=== PATIENT | female | born 1960 | race Caucasian/White ===

== ENCOUNTER 2019-01-05 06:11 | Inpatient (IN) ==
[2018-12-30 15:14] LABS: Amphetamine Screen,Urine NONE DETECTED (NONDETECTED); Benzodiazepines Screen,Urine NONE DETECTED (NONDETECTED); Cocaine Screen,Urine NONE DETECTED (NONDETECTED); Opiate Screen,Urine NONE DETECTED (NONDETECTED); Oxycodone, Urine Screen NONE DETECTED (NONDETECTED)
[2018-12-30 15:16] LABS: Appearance,Urine CLEAR; Bilirubin,Urine NEG (NEG); Color,Urine YELLOW; Glucose,Urine (UA) NEGATIVE (NEG); Leukocyte Esterase,Urine NEG /uL (NEG); Protein,Urine NEG (NEG); Specific Gravity,Urine 1.011 (1.000-1.035); Urine Blood NEG mg/dL (<0.03); Urobilinogen,Urine NEG (NEG)
[2018-12-30 15:57] LABS: Basophils # (Auto) 0 K/mcL (0.0-0.3); Basophils % (Auto) 0.6 % (0.0-2.0); Eosinophils # (Auto) 0.2 K/mcL (0.0-0.7); Eosinophils % (Auto) 2.8 % (0.0-7.0); Granulocytes % (Auto) 62.7 % (38.0-78.0); Lymphocytes % (Auto) 26.3 % (15.5-49.0); Mean Cell Volume 88.3 fL (80.0-100.0); Mean Corpuscular HGB Conc 32.3 g/dL (31.0-36.0); Monocytes # (Auto) 0.6 K/mcL (0.1-0.9); Monocytes % (Auto) 7.6 % (1.0-12.0); Platelet Count 252 K/mcL (140-440); RBC 4.74 M/mcL (4.00-5.20); Red Cell Distribution Width 17.6 % (11.5-14.5)
[2018-12-30 16:00] LABS: Blood Urea Nitrogen 9 mg/dl (6-20)
[2018-12-30 17:14] LABS: Estimated Average Glucose(eAG) 123 mg/dL; Hemoglobin A1C 5.9 % HGB (4.0-6.0)
[2019-01-05] MEDS ORDERED: ceFAZolin 1 GM VIAL IV SCH (07:00)
[2019-01-05] MEDS ORDERED: 0.9 % SODIUM CHLORIDE 9 ML, KETOROLAC 30 MG, ROPIVACAINE HCL/PF 49.5 ML, EPINEPHrine 0.... IJ SCH (07:00)
[2019-01-05 07:45] LABS: Amphetamine Screen,Urine NONE DETECTED (NONDETECTED); Benzodiazepines Screen,Urine NONE DETECTED (NONDETECTED); Cocaine Screen,Urine NONE DETECTED (NONDETECTED); Opiate Screen,Urine NONE DETECTED (NONDETECTED); Oxycodone, Urine Screen NONE DETECTED (NONDETECTED)
[2019-01-05] MEDS ORDERED: KETAMINE 100 MG/ML ML IV ONE (10:30)
[2019-01-05] MEDS ORDERED: DEXAMETHASONE 10 MG/ML VIAL IV ONE (10:30)
[2019-01-05] MEDS ORDERED: PROPOFOL 200 MG/20 ML VIAL IV ONE (10:30)
[2019-01-05] MEDS ORDERED: EPINEPHrine 1 MG/ML AMPUL IV ONE (10:30)
[2019-01-05] MEDS ORDERED: MIDAZOLAM 5 MG/5 ML VIAL IV ONE (10:30)
[2019-01-05] MEDS ORDERED: LIDOCAINE HCL/PF 100 MG/5 ML SYRINGE IV ONE (10:30)
[2019-01-05] MEDS ORDERED: TRANEXAMIC ACID 1,000 MG/10 ML VIAL IV ONE ×2 (10:30→12:20)
[2019-01-05] MEDS ORDERED: ROPIVACAINE HCL/PF 20 ML VIAL IJ ONE (10:30)
[2019-01-05] MEDS ORDERED: GLYCOPYRROLATE 0.2 MG/ML VIAL IV ONE (10:30)
[2019-01-05] MEDS ORDERED: ONDANSETRON 4 MG/2 ML VIAL IV ONE (10:30)
[2019-01-05] MEDS ORDERED: PHENYLEPHRINE 10 MG/ML VIAL IV ONE (10:30)
[2019-01-05] MEDS ORDERED: GENTAMICIN SULFATE 800 MG/20 ML VIAL IR ONE (10:55)
[2019-01-05] MEDS ORDERED: FLEETS ADULT ENEMA PR PRN (12:20)
[2019-01-05] MEDS ORDERED: BISACODYL 10 MG SUPP.RECT PR PRN (12:20)
[2019-01-05] MEDS ORDERED: MAGNESIUM HYDROXIDE 30 ML ORAL.SUSP PO PRN (12:20)
[2019-01-05] MEDS ORDERED: POLYETHYLENE GLYCOL 3350 17 GM PACKET PO PRN (12:20)
[2019-01-05] MEDS ORDERED: ONDANSETRON 4 MG/2 ML VIAL IV PRN ×2 (12:20→13:31)
[2019-01-05] MEDS ORDERED: BENZOCAINE/MENTHOL 1 LOZENGE PO PRN ×2 (12:20→13:31)
[2019-01-05] MEDS ORDERED: CARBOXYMETHYLCELLULOSE SODIUM OU PRN (12:24)
[2019-01-05] MEDS ORDERED: traZODone HCL 50 MG TABLET PO PRN (12:24)
[2019-01-05] MEDS ORDERED: METHOCARBAMOL 500 MG TABLET PO PRN (12:24)
[2019-01-05] MEDS ORDERED: IBUPROFEN 200 MG TABLET PO PRN (12:24)
[2019-01-05] MEDS ORDERED: ALBUTEROL SULFATE 1 PUFF INHALER IH PRN (12:24)
--- NOTE | 2019-01-05 12:29 | Brief Operative Note ---
Date of procedure: 01/05/19 Pre-op diagnosis: djd right knee Post-op diagnosis: same Procedure: R TKR Grafts/Implants: Yes (Triathlon knee. size 3 femur, 3 tibia, 9 mm insert, 35 mm anatomic patella) Anesthesia: GETA Findings: DJD right knee Complications: none Surgeon: Jovon Durbin Inventory Representative: Gaurav Hand Estimated blood loss (cc): 100 Tourniquet Time (Minutes): 66 Specimens Removed/Pathology: none sent Condition: stable Disposition: PACU
--- NOTE | 2019-01-05 13:06 | Operative Note ---
DATE OF OPERATION: 01/05/2019 PREOPERATIVE DIAGNOSIS: Degenerative joint disease of the right knee. POSTOPERATIVE DIAGNOSIS: Degenerative joint disease of the right knee. OPERATION: Right total knee replacement using RONNA and a triathlon knee. SURGEON: Jovon Durbin MD SLEEVER: Gaurav Hand PA-C ANESTHESIA: Done by Moi Boyle CRNA. ESTIMATED BLOOD LOSS: 100 mL TOURNIQUET TIME: 66 minutes. SUMMARY OF PROCEDURE: General anesthesia was attained. Stab incision was made in the femur and the tibia. The pins were placed unicortically in both of those bones. The array was then placed for the RONNA. A midline incision was made from the quadriceps to the tibial tubercle. This was taken down sharply to the quadriceps and medial retinaculum. The quadriceps and medial retinaculum was split longitudinally. The medial soft tissue was elevated with care being taken to protect the medial collateral ligament. The patella was mobilized laterally. The fat pad was debrided. The menisci were resected. The checkpoints were placed, one in the femur and one in the tibia. Landmarks were confirmed on the femur and then on the tibia. Balancing was then done and rotation of the femur adjusted to get a balanced flexion and extension gap. The robotic arm was then used to make the proximal tibial cut. The robotic arm was then used to make all the femur cuts, those are posterior, anterior, bevel cuts and distal. Trials were then done after prepping the tibia. The best combination of stability through range of motion was with the 3 tibia, 3 femur and 9 mm insert. The patella was everted. A measured resection was done of the patella from 23 mm down to 13 mm. The patella sized to a 32. The 3 holes were drilled for the prongs of the patella. Multimodal injection was then done throughout the knee. The bone surfaces were thoroughly irrigated and then dried. The components were then cemented in. This was done in full extension. Excess cement was removed meticulously. The tourniquet was let down. All bleeding points were coagulated. The quadriceps and medial retinacular split were closed with buried sutures of 0 FiberWire. The second layer was done of a running locking 0 Maxon. Subcutaneous tissue was closed with interrupted buried 2-0 Monocryl. The skin was closed with a Dura-Nixon. A sterile compressive dressing was applied. The sponge and needle count was correct. The patient tolerated the procedure well and was moved to the recovery room in stable condition. TJF:kh Job ID: [id number] Doc ID: [id number] Jovon Durbin MD
[2019-01-05] MEDS ORDERED: FLUMAZENIL 0.1 MG/ML ML IV PRN (13:31)
[2019-01-05] MEDS ORDERED: LACTATED RINGERS 250 ML IV PRN (13:31)
[2019-01-05] MEDS ORDERED: IPRATROPIUM/ALBUTEROL 3 ML AMPUL.NEB NEB PRN (13:31)
[2019-01-05] MEDS ORDERED: NALOXONE HCL 0.4 MG/ML VIAL IV PRN (13:31)
[2019-01-05] MEDS ORDERED: KETOROLAC 30 MG/ML VIAL IV PRN (13:31)
[2019-01-05] MEDS ORDERED: fentaNYL 100 MCG/2 ML VIAL IV PRN (13:31)
[2019-01-05] MEDS ORDERED: METHOCARBAMOL 1,000 MG/10 ML VIAL IV PRN (13:31)
[2019-01-05] MEDS ORDERED: MEPERIDINE 25 MG/ML SYRINGE IV PRN (13:31)
[2019-01-05] MEDS ORDERED: ACETAMINOPHEN 1,000 MG/100 ML BOTTLE IV ONE (13:31)
[2019-01-05] MEDS ORDERED: LACTATED RINGERS 1,000 ML IV SCH (13:45)
[2019-01-05] MEDS: 0.9 % SODIUM CHLORIDE 1,000 ML IV SCH (14:40)
[2019-01-05] MEDS: GABAPENTIN 400 MG CAPSULE PO SCH ×2 (14:41→23:28)
[2019-01-05] MEDS: 0.9 % SODIUM CHLORIDE 10 ML SYRINGE IV SCH ×2 (14:41→23:38)
--- NOTE | 2019-01-05 14:43 | XRay Report ---
CLINICAL INFORMATION: Postsurgical follow-up TECHNIQUE: AP and crosstable lateral right knee COMPARISON: Previous evaluation dated 04/01/2018 FINDINGS: Status post right total knee arthroplasty. Femoral and tibial components are in anatomic positions. There is postsurgical soft tissue and intra-articular gas. There are skin isabel anteriorly IMPRESSION: Status post right total knee arthroplasty Interpreted and Authenticated by: Eddie Gibbs 01/05/19
[2019-01-05] MEDS: ceFAZolin 1 GM VIAL IV SCH (16:31)
[2019-01-05] MEDS: HYDROcodone/APAP 10/325MG TABLET PO PRN ×2 (16:32→20:59)
[2019-01-05] MEDS ORDERED: FORMOTEROL INH SCH (21:00)
[2019-01-05] MEDS ORDERED: BUDESONIDE INH SCH (21:00)
[2019-01-05] MEDS ORDERED: LEVOTHYROXINE SODIUM 112 MCG TABLET PO SCH (21:00)
[2019-01-05] MEDS ORDERED: THIAMINE 100 MG TABLET PO SCH (21:00)
[2019-01-05] MEDS ORDERED: OMEPRAZOLE 20 MG CAPSULE PO SCH (21:00)
[2019-01-05] MEDS ORDERED: metFORMIN 850 MG TABLET PO SCH (21:00)
[2019-01-05] MEDS ORDERED: DULoxetine 30 MG CAPSULE PO SCH (21:00)
[2019-01-05] MEDS ORDERED: lamoTRIgine 100 MG TABLET PO SCH (21:00)
[2019-01-05] MEDS ORDERED: FOLIC ACID 1 MG TABLET PO SCH (21:00)
[2019-01-05] MEDS ORDERED: SIMVASTATIN 20 MG TABLET PO SCH (21:00)
[2019-01-05] MEDS ORDERED: CETIRIZINE 10 MG TABLET PO SCH (21:00)
[2019-01-05] MEDS ORDERED: SENNOSIDES 1 TABLET PO SCH (21:00)
[2019-01-05] MEDS ORDERED: LISINOPRIL 10 MG TABLET PO SCH (21:00)
[2019-01-05] MEDS: ASPIRIN 81 MG TAB.CHEW PO SCH (23:11)
[2019-01-05] MEDS: OXYBUTYNIN CHLORIDE 5 MG TABLET PO SCH (23:29)
[2019-01-05] MEDS: oxyCODONE 10 MG TAB.ER.12H PO SCH (23:29)
[2019-01-05] MEDS: DOCUSATE SODIUM 100 MG CAPSULE PO SCH (23:34)
[2019-01-06] MEDS: HYDROcodone/APAP 10/325MG TABLET PO PRN ×3 (00:47→09:38)
[2019-01-06] MEDS: ceFAZolin 1 GM VIAL IV SCH (01:22)
[2019-01-06] MEDS: 0.9 % SODIUM CHLORIDE 1,000 ML IV SCH (01:54)
[2019-01-06] MEDS: 0.9 % SODIUM CHLORIDE 10 ML SYRINGE IV SCH (04:59)
[2019-01-06 07:00] LABS: Basophils # (Auto) 0 K/mcL (0.0-0.3); Basophils % (Auto) 0 % (0.0-2.0); Eosinophils # (Auto) 0 K/mcL (0.0-0.7); Eosinophils % (Auto) 0.1 % (0.0-7.0); Granulocytes % (Auto) 85.8 % (38.0-78.0); Lymphocytes # (Auto) 1.1 K/mcL (1.5-4.8); Lymphocytes % (Auto) 7.7 % (15.5-49.0); Mean Cell Volume 88.9 fL (80.0-100.0); Mean Corpuscular HGB Conc 32.7 g/dL (31.0-36.0); Monocytes # (Auto) 0.9 K/mcL (0.1-0.9); Monocytes % (Auto) 6.4 % (1.0-12.0); Platelet Count 214 K/mcL (140-440); RBC 3.95 M/mcL (4.00-5.20)
--- NOTE | 2019-01-06 08:09 | Discharge Summary ---
Ortho Discharge - TKA - Patient Instructions Diet: Regular Diet Activity: activity as tolerated Total Knee Protocol: For Total Knee: Start ROM SHERYL with stationary bike or rocking chair. Work on gaining full extension of knee. Posterior dislocation precautions provided. Hip abductor strengthening and gait training instructions provided. Apply Cryocuff as instructed. Dressing Care: May shower in 2 days Patient Education: Hydrocodone/Acetaminophen (By mouth), Aspirin (By mouth), Total Knee Replacement (DC) Additional Instructions: Discharge Instructions: Do the exercises at home that physical therapy gave you throughout the day. Weight bearing as tolerated. Wear comfortable clothing for physical therapy. You are scheduled to start physical therapy at [facility] ([phone]) on at 12:45 pm, please arrive 15 minutes early for paperwork. Take your prescription, photo ID, insurance cards, and current medication list with you to your first physical therapy appointment. Take your prescription to [facility] picker any medication. You have the Aquacel Ag dressing, leave in place for 7 days then remove. If dressing becomes soiled (turns black), remove and use gauze 4x4 dressing and silvasorb ointment and change daily. Keep incision clean and dry. You may start showering on post op day #2. To avoid constipation while taking any narcotic pain medication, take an over the counter stool softener/laxative. Use your Cryocuff or ice packs as directed, on for 20 minutes at a time throughout the day. This and elevation will help with pain and swelling. Call your physician for fevers above 100.5 or pain not controlled by medication. Your prescriptions are with your discharge information. Some medications were electronically transmitted to your pharmacy of choice. Take Aspirin twice daily, for 30 days, as prescribed to prevent blood clots (see medication list). - Follow Up Plan Follow Up Appointments: Gaurav Hand PA-C [Physician Internet Marketing Specialist] - 01/18/19 3:40 pm Disposition: Home, Self-Care Prognosis: Good Rehab Potential: Good I certify that the patient requires SNF services: No Overall status at discharge: patient is not back to baseline - Orders For Discharge Prescriptions: Aspirin [Ecotrin] 81 mg PO DAILY #60 tab.ec RX: Aspirin 81 mg PO BID #60 tab.chew RX: HYDROcodone/APAP 10/325MG [[place] 10-325Mg] 1 - 2 tab PO Q4HP PRN #60 tab PRN Reason: Pain Level 3-6 Additional Discharge Orders: Physical Therapy at Discharge - TKA Location: None Selected Toilet Riser Discharge Order Location: None Selected Walker Location: None Selected
[2019-01-06] MEDS ORDERED: ESTRADIOL 1 MG TABLET PO SCH (09:00)
[2019-01-06] MEDS: OXYBUTYNIN CHLORIDE 5 MG TABLET PO SCH (09:39)
[2019-01-06] MEDS: oxyCODONE 10 MG TAB.ER.12H PO SCH (09:39)
[2019-01-06] MEDS: ASPIRIN 81 MG TAB.CHEW PO SCH (09:40)
[2019-01-06] MEDS: DOCUSATE SODIUM 100 MG CAPSULE PO SCH (09:40)
[2019-01-06] MEDS: GABAPENTIN 400 MG CAPSULE PO SCH (09:40)
[2019-01-19] MEDS ORDERED: ERGOCALCIFEROL (VITAMIN D2) 50,000 UNIT CAPSULE PO SCH (09:00)
== END 2019-01-06 09:57 | disposition home or self-care (01) | DRG 554 ==
LOC: MEDSUR 06:11
PROVIDERS: ADMIT Orthopaedic Surgery Foot and Ankle Surgery; ATTEND Orthopaedic Surgery Foot and Ankle Surgery

== ENCOUNTER 2019-05-18 06:30 | Inpatient (IN) ==
[2019-05-10 14:17] LABS: Basophils # (Auto) 0 K/mcL (0.0-0.3); Basophils % (Auto) 0.6 % (0.0-2.0); Eosinophils # (Auto) 0.3 K/mcL (0.0-0.7); Eosinophils % (Auto) 4.1 % (0.0-7.0); Granulocytes % (Auto) 65.7 % (38.0-78.0); Hematocrit 37.6 % (36.0-48.0); Hemoglobin 12.1 g/dL (12.0-15.0); Lymphocytes # (Auto) 1.6 K/mcL (1.5-4.8); Lymphocytes % (Auto) 22.4 % (15.5-49.0); Mean Cell Volume 82.7 fL (80.0-100.0); Mean Platelet Volume 9.1 fL (7.4-10.4); Monocytes # (Auto) 0.5 K/mcL (0.1-0.9); Monocytes % (Auto) 7.2 % (1.0-12.0); Platelet Count 269 K/mcL (140-440); RBC 4.55 M/mcL (4.00-5.20); Red Cell Distribution Width 19.1 % (11.5-14.5); WBC 7.4 K/mcL (4.5-11.0)
[2019-05-10 14:18] LABS: Estimated Average Glucose(eAG) 128 mg/dL; Hemoglobin A1C 6.1 % HGB (4.0-6.0)
[2019-05-10 14:23] LABS: Blood Urea Nitrogen 12 mg/dl (6-20); Calcium 8.8 mg/dl (8.6-10.4); Carbon Dioxide 30 mmol/L (22-30); Chloride 97 mmol/L (96-108); Glomerular Filtration Rate 82; Glucose 88 mg/dL (70-105); Potassium 3.9 mmol/L (3.3-5.1); Sodium 140 mmol/L (133-145)
[2019-05-10 14:26] LABS: Appearance,Urine CLEAR; Bilirubin,Urine NEG (NEG); Color,Urine YELLOW; Culture Indicated,Urine NO; Glucose,Urine (UA) NEGATIVE (NEG); Ketones,Urine NEG (NEG); Leukocyte Esterase,Urine NEG /uL (NEG); Nitrate,Urine NEG (NEG); Protein,Urine NEG (NEG); Specific Gravity,Urine 1.019 (1.000-1.035); Urine Blood NEG mg/dL (<0.03); Urobilinogen,Urine NEG (NEG)
[~2019-05-18 06:30] MED LIST: 0.9 % SODIUM CHLORIDE 9 ML, KETOROLAC 30 MG, ROPIVACAINE HCL/PF 49.5 ML, EPINEPHrine 0.... IJ SCH; ceFAZolin 3 GM in DEXTROSE 5% IN WATER 50 ML IV SCH
[2019-05-18] MEDS ORDERED: IPRATROPIUM/ALBUTEROL 3 ML AMPUL.NEB NEB PRN ×2 (07:00→10:47)
[2019-05-18] MEDS ORDERED: SCOPOLAMINE 1 PATCH PATCH TOPICAL PRN (07:00)
[2019-05-18 07:42] LABS: Amphetamine Screen,Urine NONE DETECTED (NONDETECTED); Barbiturate Screen,Urine NONE DETECTED (NONDETECTED); Benzodiazepines Screen,Urine NONE DETECTED (NONDETECTED); Cannabinoid Screen,Urine SUSPECT POSITIVE (NONDETECTED); Cocaine Screen,Urine NONE DETECTED (NONDETECTED); Opiate Screen,Urine NONE DETECTED (NONDETECTED); Oxycodone, Urine Screen NONE DETECTED (NONDETECTED); Phencyclidine Screen,Urine NONE DETECTED (NONDETECTED)
[2019-05-18] MEDS ORDERED: TRANEXAMIC ACID 1,000 MG/10 ML VIAL IV ONE ×2 (09:50→11:37)
[2019-05-18] MEDS ORDERED: PROPOFOL 200 MG/20 ML VIAL IV ONE (09:50)
[2019-05-18] MEDS ORDERED: DEXAMETHASONE 10 MG/ML VIAL IV ONE (09:50)
[2019-05-18] MEDS ORDERED: KETAMINE 100 MG/ML ML IV ONE (09:50)
[2019-05-18] MEDS ORDERED: ONDANSETRON 4 MG/2 ML VIAL IV ONE (09:50)
[2019-05-18] MEDS ORDERED: ROPIVACAINE HCL/PF 20 ML VIAL IJ ONE (09:50)
[2019-05-18] MEDS ORDERED: ePHEDrine 50 MG/ML AMPUL IV ONE (09:50)
[2019-05-18] MEDS ORDERED: PHENYLEPHRINE 10 MG/ML VIAL IV ONE (09:50)
[2019-05-18] MEDS ORDERED: GLYCOPYRROLATE 0.2 MG/ML VIAL IV ONE (09:50)
[2019-05-18] MEDS ORDERED: MIDAZOLAM 5 MG/5 ML VIAL IV ONE (09:50)
[2019-05-18] MEDS ORDERED: LIDOCAINE HCL/PF 100 MG/5 ML SYRINGE IV ONE (09:50)
[2019-05-18] MEDS ORDERED: GENTAMICIN SULFATE 800 MG/20 ML VIAL IR ONE (10:16)
[2019-05-18] MEDS ORDERED: HYDROmorphone 2 MG/ML VIAL IV PRN ×2 (10:47→15:01)
[2019-05-18] MEDS ORDERED: FLUMAZENIL 0.1 MG/ML ML IV PRN (10:47)
[2019-05-18] MEDS ORDERED: METHOCARBAMOL 1,000 MG/10 ML VIAL IV PRN ×2 (10:47→11:37)
[2019-05-18] MEDS ORDERED: ACETAMINOPHEN 1,000 MG/100 ML BOTTLE IV ONE (10:47)
[2019-05-18] MEDS ORDERED: MEPERIDINE 25 MG/ML SYRINGE IV PRN (10:47)
[2019-05-18] MEDS ORDERED: MEPERIDINE 50 MG/ML INJECTION IM PRN (10:47)
[2019-05-18] MEDS ORDERED: ePHEDrine 50 MG/ML AMPUL IV PRN (10:47)
[2019-05-18] MEDS ORDERED: ONDANSETRON 4 MG/2 ML VIAL IV PRN ×2 (10:47→11:37)
[2019-05-18] MEDS ORDERED: NALOXONE HCL 0.4 MG/ML VIAL IV PRN (10:47)
[2019-05-18] MEDS ORDERED: PROMETHAZINE 25 MG/ML VIAL IV PRN (10:47)
[2019-05-18] MEDS ORDERED: diphenhydrAMINE 50 MG/ML VIAL IV PRN (10:47)
[2019-05-18] MEDS ORDERED: METOPROLOL TARTRATE 5 MG/5 ML VIAL IV PRN (10:47)
[2019-05-18] MEDS ORDERED: KETOROLAC 30 MG/ML VIAL IV PRN (10:47)
[2019-05-18] MEDS ORDERED: ATROPINE SULFATE 0.4 MG/ML VIAL IV PRN (10:47)
[2019-05-18] MEDS ORDERED: fentaNYL 100 MCG/2 ML VIAL IV PRN (10:47)
[2019-05-18] MEDS ORDERED: PROMETHAZINE 25 MG/ML VIAL IM PRN (10:47)
[2019-05-18] MEDS ORDERED: POLYETHYLENE GLYCOL 3350 17 GM PACKET PO PRN (11:37)
[2019-05-18] MEDS ORDERED: MAGNESIUM HYDROXIDE 30 ML ORAL.SUSP PO PRN (11:37)
[2019-05-18] MEDS ORDERED: BENZOCAINE/MENTHOL 1 LOZENGE PO PRN (11:37)
[2019-05-18] MEDS ORDERED: FLEETS ADULT ENEMA PR PRN (11:37)
[2019-05-18] MEDS ORDERED: BISACODYL 10 MG SUPP.RECT PR PRN (11:37)
--- NOTE | 2019-05-18 11:37 | Brief Operative Note ---
Date of procedure: 05/18/19 Pre-op diagnosis: DJD left knee Post-op diagnosis: same Procedure: RONNA TKR Grafts/Implants: Yes (Triathlon knee) Anesthesia: GETA Complications: none Surgeon: Jovon Durbin Diesel Machinist: Jovon Durbin Estimated blood loss (cc): 90 Specimens Removed/Pathology: none sent Condition: stable Disposition: PACU
[2019-05-18] MEDS ORDERED: ALBUTEROL SULFATE 1 PUFF INHALER IH PRN (11:40)
[2019-05-18] MEDS ORDERED: CARBOXYMETHYLCELLULOSE SODIUM OU PRN (11:40)
[2019-05-18] MEDS ORDERED: traZODone HCL 50 MG TABLET PO PRN (11:40)
[2019-05-18] MEDS ORDERED: KETOTIFEN FUMARATE OP PRN (11:43)
[2019-05-18] MEDS ORDERED: IBUPROFEN 200 MG TABLET PO PRN (11:43)
--- NOTE | 2019-05-18 12:37 | Operative Note ---
DATE OF OPERATION: 05/18/2019 PREOPERATIVE DIAGNOSIS: Degenerative joint disease of the left knee. POSTOPERATIVE DIAGNOSIS: Degenerative joint disease of the left knee. OPERATION: Left total knee replacement using the Gerardo system. SURGEON: Jovon Durbin M.D. ANESTHESIA: General done by Quita Nair CRNA. ESTIMATED BLOOD LOSS: 100 mL. TOURNIQUET TIME: 65 minutes. SUMMARY OF PROCEDURE: General anesthesia was attained. The left leg was prepped and draped. The stab incisions were made in the femur and the tibia. We used blunt dissection to get down to bone. The pins for the arrays were placed. The arrays were then placed onto these pins. A midline incision was made from the quadriceps to the tibial tubercle. It was taken down sharply to the quadriceps and medial retinaculum. A midvastus approach was used. The quadriceps was split for 2 cm and then the VMO for about 2 cm as well at an oblique angle. The medial retinaculum was split. The medial soft tissue was elevated. The fat pad was debrided. The anterior menisci were resected. The ACL was released. The soft tissue was elevated off of the anterior aspect of the femur and a partial synovectomy was done. The hip center was located by counterclockwise rotation of the leg. A checkpoint was placed into the femur and a checkpoint was placed into the tibia. The position of these were confirmed under the mini C-arm. Forty points were located during the registration of the femur and likewise forty anatomic points located on the tibia. The medial and lateral meniscus had been located using the Gerardo system. We then balanced the knee giving 1 more degree of laxity in flexion than extension. We internally rotated the cut on the femur into 1 degree of varus to balance the compartments. I then used the robotic arm and the robotic guidance to make all the tibial and femoral cuts. A trial was then placed onto the tibia and the tibial component externally rotated. The components sized to a 3. The rotation was confirmed to be as planned on the Gerardo. The tower was then placed, and the canal was then drilled and then broached. The femur sized to a 3 as well. This trial was impacted and then held with a pin. The drill holes were made into the posterior aspect of the femur. We maximized lateral placement of the femur. We then trialed and got an excellent combination of stability and range of motion with a 9 mm insert. The patella was everted. Its thickness was 22 mm. We did an 8 mm resection leaving 14 mm. We used a 29 symmetric patella. The lateral facet was removed using a saw during the trialing aspect of the surgery. Posterior infiltrates were then placed of multimodal solution per protocol. The bone surfaces were thoroughly irrigated. The components were cemented in. The knee was left in extension as the components set up. The patella was also cemented in and this was held with a clamp. After the cement had hardened and excess cement had been removed, we let the tourniquet down. Bleeding was not excessive. All bleeding points were coagulated. The medial retinaculum and VMO and quads were closed with a double layer Stratafix proximally and distally. The subcutaneous tissue was closed with buried 2-0 Monocryl. The skin was closed with Dermabond. A sterile compressive dressing was applied. The sponge and needle count was correct. The patient tolerated the procedure well and was taken to the recovery room in stable condition. TJF:lei Job ID: [id number] Doc ID: [id number] Jovon Durbin MD
--- NOTE | 2019-05-18 12:42 | XRay Report ---
CLINICAL INFORMATION: Postsurgical follow-up TECHNIQUE: Portable AP, crosstable lateral, patellar views COMPARISON: None. FINDINGS: Status post left total knee arthroplasty. Femoral and tibial components are in anatomic positions. There is postsurgical soft tissue and intra-articular gas. IMPRESSION: Status post left knee replacement surgery Interpreted and Authenticated by: Eddie Gibbs 05/18/19
[2019-05-18] MEDS: 0.9 % SODIUM CHLORIDE 10 ML SYRINGE IV SCH ×2 (13:01→22:46)
[2019-05-18] MEDS: HYDROcodone/APAP 10/325MG TABLET PO PRN ×3 (13:01→23:42)
[2019-05-18] MEDS: 0.9 % SODIUM CHLORIDE 1,000 ML IV SCH (13:17)
[2019-05-18] MEDS: CALCIUM W/VIT D3 500 MG TABLET PO SCH ×2 (15:05→20:28)
[2019-05-18] MEDS: GABAPENTIN 400 MG CAPSULE PO SCH ×2 (15:05→20:25)
[2019-05-18] MEDS: ceFAZolin 1 GM VIAL IV SCH (17:34)
[2019-05-18] MEDS: ASPIRIN 81 MG TAB.CHEW PO SCH (20:25)
[2019-05-18] MEDS: OXYBUTYNIN CHLORIDE 5 MG TABLET PO SCH (20:26)
[2019-05-18] MEDS: DOCUSATE SODIUM 100 MG CAPSULE PO SCH (20:26)
[2019-05-18] MEDS: FORMOTEROL INH SCH (20:31)
[2019-05-18] MEDS: MOMETASONE INH SCH (20:31)
[2019-05-18] MEDS ORDERED: THIAMINE 100 MG TABLET PO SCH (21:00)
[2019-05-18] MEDS ORDERED: CETIRIZINE 10 MG TABLET PO SCH (21:00)
[2019-05-18] MEDS ORDERED: SIMVASTATIN 20 MG TABLET PO SCH (21:00)
[2019-05-18] MEDS ORDERED: lamoTRIgine 100 MG TABLET PO SCH (21:00)
[2019-05-18] MEDS ORDERED: LISINOPRIL 10 MG TABLET PO SCH (21:00)
[2019-05-18] MEDS ORDERED: DULoxetine 30 MG CAPSULE PO SCH (21:00)
[2019-05-18] MEDS ORDERED: LEVOTHYROXINE SODIUM 112 MCG TABLET PO SCH (21:00)
[2019-05-18] MEDS ORDERED: OMEPRAZOLE 20 MG CAPSULE PO SCH (21:00)
[2019-05-18] MEDS ORDERED: metFORMIN 850 MG TABLET PO SCH (21:00)
[2019-05-18] MEDS ORDERED: SENNOSIDES 1 TABLET PO SCH (21:00)
[2019-05-18] MEDS ORDERED: FOLIC ACID 1 MG TABLET PO SCH (21:00)
[2019-05-19] MEDS: ceFAZolin 1 GM VIAL IV SCH (01:36)
[2019-05-19] MEDS: 0.9 % SODIUM CHLORIDE 1,000 ML IV SCH (01:38)
[2019-05-19] MEDS: HYDROcodone/APAP 10/325MG TABLET PO PRN ×2 (04:05→07:57)
[2019-05-19] MEDS: 0.9 % SODIUM CHLORIDE 10 ML SYRINGE IV SCH (04:46)
[2019-05-19 05:34] LABS: Hematocrit 32.8 % (36.0-48.0); Hemoglobin 10.7 g/dL (12.0-15.0)
--- NOTE | 2019-05-19 07:05 | Discharge Summary ---
Ortho Discharge - TKA - Patient Instructions Diet: Renal/Consistent Carbs Activity: ambulate with assistive device Total Knee Protocol: For Total Knee: Start ROM SHERYL with stationary bike or rocking chair. Work on gaining full extension of knee. Posterior dislocation precautions provided. Hip abductor strengthening and gait training instructions provided. Apply Cryocuff as instructed. - Follow Up Plan Follow Up Appointments: Jovon Durbin MD [Physician] - 05/29/19 Disposition: Home, Self-Care Prognosis: Good Rehab Potential: Good I certify that the patient requires SNF services: No - Orders For Discharge Prescriptions: HYDROcodone/APAP 10/325MG [[place] 10-325Mg] 1 - 2 tab PO Q4HP PRN #60 tab PRN Reason: Pain Level 3-6 Walker [Ultra-Light Rollator] 1 each MC QDAY #1 each
--- NOTE | 2019-05-19 07:07 | Discharge Summary ---
Providers - Providers Patient information: Note initiated : 05/19/19 at 7:05 am Service Date, if different from initiated Date: [] Patient: Kenia Rondon a 58 y/o F admitted on 05/18/19 for Left Total Knee Arthroplasty Gerardo . Chief Complaint: [] Date of admission: 05/18/19 Discharge date: 05/19/19 Attending physician: Jovon Durbin Hospitalization Hospital course: total knee on left, 05/18. No co,plications. NV intact, no complications. Walking independently Discharge diagnosis: oateoarthritis left knee Exam - Exam Weight bearing status: full Range of motion: NV intact, 0-100 actively Ortho Discharge - TKA - Patient Instructions Diet: Renal/Consistent Carbs Activity: ambulate with assistive device Total Knee Protocol: For Total Knee: Start ROM SHERYL with stationary bike or rocking chair. Work on gaining full extension of knee. Posterior dislocation precautions provided. Hip abductor strengthening and gait training instructions provided. Apply Cryocuff as instructed. - Follow Up Plan Follow Up Appointments: Jovon Durbin MD [Physician] - 05/29/19 Disposition: Home, Self-Care Prognosis: Good Rehab Potential: Good I certify that the patient requires SNF services: No - Orders For Discharge Prescriptions: HYDROcodone/APAP 10/325MG [[place] 10-325Mg] 1 - 2 tab PO Q4HP PRN #60 tab PRN Reason: Pain Level 3-6 Walker [Ultra-Light Rollator] 1 each MC QDAY #1 each Pending Studies Resuscitation Status Full Code Diet Consistent Carbohydrate Diet Start WedMay 18 142 Hydrocodone Bitart/Acetaminophen ([place] 10/325mg) 0 tab PO Q4HP PRN PRN Reason: PAIN LEVEL 3-6 Last Admin: 05/19/19 04:05 Dose: 2 tab Documented by: Admin: 05/18/19 23:42 Dose: 2 tab Documented by: Admin: 05/18/19 19:43 Dose: 2 tab Documented by: Admin: 05/18/19 13:01 Dose: 2 tab Documented by: MGARRED Aspirin (Aspirin) 81 mg PO BID [facility] Last Admin: 05/18/19 20:25 Dose: 81 mg Documented by: MADDI Calcium/Vitamin D (Calcium W/Vit D3) 500 mg PO TID [facility] Last Admin: 05/18/19 20:28 Dose: 500 mg Documented by: Admin: 05/18/19 15:05 Dose: 500 mg Documented by: MGARROXANA Cetirizine HCl (Zyrtec) 10 mg PO [facility] Last Admin: 05/18/19 20:26 Dose: 10 mg Documented by: MADDI Docusate Sodium (Colace) 100 mg PO BID [facility] Last Admin: 05/18/19 20:26 Dose: 100 mg Documented by: MADDI Duloxetine HCl (Cymbalta) 90 mg PO [facility] Last Admin: 05/18/19 20:27 Dose: 90 mg Documented by: MADDI Folic Acid (Folic Acid) 1 mg PO [facility] Last Admin: 05/18/19 20:29 Dose: Not Given Documented by: MADDI Gabapentin (Neurontin) 400 mg PO TID [facility] Last Admin: 05/18/19 20:25 Dose: 400 mg Documented by: Admin: 05/18/19 15:05 Dose: 400 mg Documented by: MGSAY Sodium Chloride (Sodium Chloride 0.9%) 1,000 mls @ 75 mls/hr IV .[id number] [facility] Last Admin: 05/19/19 01:38 Dose: 75 mls/hr Documented by: Infusion: 05/19/19 01:38 Dose: 75 mls/hr Documented by: Admin: 05/18/19 13:17 Dose: 75 mls/hr Documented by: MGARROXANA Lamotrigine (Lamictal) 200 mg PO [facility] Last Admin: 05/18/19 20:28 Dose: 200 mg Documented by: MADDI Levothyroxine Sodium (Synthroid) 125 mcg PO [facility] Last Admin: 05/18/19 20:31 Dose: 112 mcg Documented by: MADDI Lisinopril (Zestril) 10 mg PO [facility] Last Admin: 05/18/19 20:25 Dose: 10 mg Documented by: MADDI Metformin HCl (Glucophage) 850 mg PO [facility] Last Admin: 05/18/19 20:36 Dose: 850 mg Documented by: MADDI Methocarbamol (Robaxin) 750 mg IV Q6HP PRN PRN Reason: Muscle Spasm Last Admin: 05/18/19 13:01 Dose: 750 mg Documented by: PAM Omeprazole (Prilosec) 40 mg PO [facility] Last Admin: 05/18/19 20:28 Dose: 40 mg Documented by: MADDI Oxybutynin Chloride (Ditropan) 5 mg PO BID [facility] Last Admin: 05/18/19 20:26 Dose: 5 mg Documented by: MADDI Mometasone/Formoterol [Dulera] 200/5 Mcg Inhaler 2 dose INH BID [facility] Last Admin: 05/18/19 20:31 Dose: Not Given Documented by: MADDI Senna (Senokot) 2 tab PO [facility] Last Admin: 05/18/19 20:28 Dose: 2 tab Documented by: MADDI Simvastatin (Zocor) 20 mg PO [facility] Last Admin: 05/18/19 20:25 Dose: 20 mg Documented by: MADDI Sodium Chloride (Saline Flush) 10 ml IV Q8 [facility] Last Admin: 05/19/19 04:46 Dose: Not Given Documented by: Admin: 05/18/19 22:46 Dose: Not Given Documented by: Admin: 05/18/19 13:01 Dose: Not Given Documented by: PAM Thiamine HCl (Vitamin B1) 100 mg PO [facility] Last Admin: 05/18/19 22:45 Dose: Not Given Documented by: MADDI Trazodone HCl (Desyrel) 25 mg PO [facility] PRN PRN Reason: Insomnia Last Admin: 05/18/19 23:41 Dose: 25 mg Documented by: MADDI Shift Summary 05/19/19 03:23 Shift Summary by Nelida Proctor a/o x4, pleasant, up with fww/sba, dressing to left leg reinforced with abd pad and coban, cpm not used r/t strike through serosanguineous drainage, iv to left fa with ns at 75 cc/hr,, day shift reported she walked in [place] for them and that she did well, she was sitting in the chair at beginning of shift and after her boyfriend left she went to bed, he brought her take out meal and soda, her blood sugar was 214, has been medicated several times with norco 10 x 2 tabs, voiding via bsc, and last bm was on 05/18/19, she wants to stay another night, Initialized on 05/19/19 03:23 - END OF NOTE
[2019-05-19] MEDS: ASPIRIN 81 MG TAB.CHEW PO SCH (07:56)
[2019-05-19] MEDS: DOCUSATE SODIUM 100 MG CAPSULE PO SCH (07:56)
[2019-05-19] MEDS: OXYBUTYNIN CHLORIDE 5 MG TABLET PO SCH (07:57)
[2019-05-19] MEDS: CALCIUM W/VIT D3 500 MG TABLET PO SCH (07:57)
[2019-05-19] MEDS: GABAPENTIN 400 MG CAPSULE PO SCH (07:57)
[2019-05-19] MEDS: MOMETASONE INH SCH (07:57)
[2019-05-19] MEDS: FORMOTEROL INH SCH (07:57)
[2019-05-19] MEDS ORDERED: ESTRADIOL 1 MG TABLET PO SCH (09:00)
[2019-05-23 01:10] LABS: Cannabinoid Confirmation POSITIVE (N)
[2019-06-01] MEDS ORDERED: ERGOCALCIFEROL (VITAMIN D2) 50,000 UNIT CAPSULE PO SCH (09:00)
== END 2019-05-19 10:25 | disposition home or self-care (01) | DRG 470 ==
LOC: MEDSUR 06:30
PROVIDERS: ADMIT Orthopaedic Surgery Foot and Ankle Surgery; ATTEND Orthopaedic Surgery Foot and Ankle Surgery

== ENCOUNTER 2025-06-26 09:33 | Inpatient (IN) ==
[2025-06-26 10:52] LABS: Basophils # (Auto) 0.02 K/mcL (0.00-0.30); Basophils % (Auto) 0.3 % (0.0-2.0); Eosinophils # (Auto) 0.23 K/mcL (0.00-0.70); Eosinophils % (Auto) 4.0 % (0.0-7.0); Hematocrit 42.1 % (34.1-44.9); Hemoglobin 13.3 g/dL (11.2-15.7); Lymphocytes # (Auto) 1.03 K/mcL (1.50-4.80); Lymphocytes % (Auto) 18.0 % (15.5-49.0); Mean Corpuscular HGB Conc 31.6 g/dL (31.0-36.0); Monocytes # (Auto) 0.50 K/mcL (0.10-0.90); Monocytes % (Auto) 8.7 % (1.0-12.0); Neutrophils % (Auto) 68.8 % (38.0-78.0); Platelet Count 180 K/mcL (140-440); RBC 4.47 M/mcL (3.59-5.38); WBC 5.7 K/mcL (4.5-11.0)
[2025-06-26] MEDS: ATORVASTATIN 40 MG TABLET PO ONE (10:53)
[2025-06-26] MEDS: ASPIRIN 81 MG TAB.CHEW CHEWED ONE ×2 (10:53→10:59)
[2025-06-26 10:56] LABS: INR 1.1 (0.9-1.1); Partial Thromboplastin Time 28.0 sec (20.0-37.0); Prothrombin Time 14.6 sec (11.9-14.5)
[2025-06-26 11:03] LABS: ALT/SGPT 8 U/L (<40); AST/SGOT 13 U/L (<32); Albumin 3.9 gm/dL (3.2-5.2); Albumin/Globulin Ratio 1.3 (1.0-2.3); Alkaline Phosphatase 68 U/L (39-117); Anion Gap 12.0 (8.0-16.0); Bilirubin,Total 0.2 mg/dL (0.1-1.0); Blood Urea Nitrogen 11 mg/dL (8-23); Calcium 9.3 mg/dL (8.6-10.4); Carbon Dioxide 28 mmol/L (22-30); Chloride 100 mmol/L (96-108); Globulin 3.1 gm/dL (2.2-3.7); Glucose 103 mg/dL (70-105); Potassium 4.1 mmol/L (3.3-5.1); Sodium 140 mmol/L (133-145)
[2025-06-26 11:16] LABS: Bacteria,Urine Many /hpf (0); Bilirubin,Urine Negative (Negative); Color,Urine Yellow; Glucose,Urine (UA) Negative (Negative); Ketones,Urine Negative (Negative); Leukocyte Esterase,Urine Trace /uL (Negative); PH,Urine 6.0 (5.0-9.0); Protein,Urine Negative (Negative); Specific Gravity,Urine 1.015 (1.000-1.035); Urobilinogen,Urine Normal
[2025-06-26] MEDS: cefTRIAXone 1 GM VIAL IV ONE (12:02)
[2025-06-26] MEDS ORDERED: NICOTINE POLACRILEX 2 MG GUM CHEW/PARK PRN (13:23)
[2025-06-26] MEDS ORDERED: ONDANSETRON 4 MG/2 ML VIAL IV PRN (13:23)
[2025-06-26] MEDS ORDERED: ALBUTEROL SULFATE 2.5 MG/3 ML NEBULIZER NEB PRN (13:23)
[2025-06-26] MEDS: 0.9 % SODIUM CHLORIDE 10 ML SYRINGE IV SCH (14:36)
[2025-06-26] MEDS: CLOPIDOGREL 300 MG TABLET PO SCH (14:36)
[2025-06-26] MEDS: NICOTINE 21 MG PATCH TOPICAL SCH (14:36)
[2025-06-26] MEDS ORDERED: DEXTROSE 50% 50 ML VIAL IV PRN (19:50)
[2025-06-26] MEDS ORDERED: DEXTROSE 31 GM ORAL.SUSP PO PRN (19:50)
[2025-06-26] MEDS ORDERED: CARBOXYMETHYLCELLULOSE SODIUM 1 EACH DROPER.GEL OU PRN (20:04)
[2025-06-26] MEDS: INSULIN LISPRO 1 UNIT/0.01 ML UNIT SQ SCH (21:15)
[2025-06-26] MEDS: LEVOTHYROXINE SODIUM 112 MCG TABLET PO SCH (21:16)
[2025-06-26] MEDS: OMEPRAZOLE 20 MG CAPSULE PO SCH (21:16)
[2025-06-26] MEDS: ATORVASTATIN 40 MG TABLET PO SCH (21:16)
[2025-06-26] MEDS: GABAPENTIN 400 MG CAPSULE PO SCH (21:17)
[2025-06-26] MEDS: CETIRIZINE 10 MG TABLET PO SCH (21:17)
[2025-06-26] MEDS: SENNOSIDES 1 TABLET PO SCH (21:17)
[2025-06-26] MEDS: OXYBUTYNIN CHLORIDE 5 MG TABLET PO SCH (21:17)
[2025-06-27] MEDS: ACETAMINOPHEN 325 MG TABLET PO PRN (02:50)
[2025-06-27 06:14] LABS: VBG HCO3 25.4 mmol/L (24.0-28.0); VBG PCO2 42.5 mmHg (41.0-51.0); VBG PH 7.40 U (7.32-7.42); VBG PO2 96.4 mmHg (25.0-40.0)
[2025-06-27 06:40] LABS: Thyroid Stimulating Hormone 3.52 uIU/mL (0.27-5.01)
[2025-06-27 07:29] LABS: HDL Cholesterol 58 mg/dL (>40); LDL Cholesterol,Calculated 42 mg/dL (<100); Triglycerides 112 mg/dL (<150)
[2025-06-27 08:33] LABS: Estimated Average Glucose(eAG) 131 mg/dL; Hemoglobin A1C 6.2 % Hgb (4.0-6.0)
[2025-06-27] MEDS: CLOPIDOGREL 75 MG TABLET PO SCH (08:40)
[2025-06-27] MEDS: ENOXAPARIN 40 MG/0.4 ML SYRINGE SQ SCH (08:40)
[2025-06-27] MEDS: cefTRIAXone 1 GM VIAL IV SCH (08:40)
[2025-06-27] MEDS: MOMETASONE FORMOTEROL INH SCH (21:00)
[2025-06-27] MEDS: LISINOPRIL 10 MG TABLET PO SCH (21:49)
[2025-06-28] MEDS: SULFAMETHOXAZOLE/TRIMETHOPRIM 1 TABLET PO SCH (08:17)
[2025-06-29 11:17] VITALS: TEMP 98.1; O2SAT 93
== END 2025-06-29 13:40 | DRG 69 ==
LOC: ED 09:33 → MEDSUR 12:59
PROVIDERS: ADMIT Internal Medicine; ATTEND Internal Medicine